=== PATIENT | male | born 1980 | race Two or more races ===

== ENCOUNTER 2021-03-30 09:04 | Emergency (ER) | payer OTHER, SELFPAY ==
[~2021-03-30] VITALS: Ht 177.8 cm; Wt 76.3 kg
[2021-03-30 09:12] VITALS: BP 121/75
--- NOTE | 2021-03-30 10:29 | NUR ---
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
--- NOTE | 2021-03-30 10:32 | NUR ---
[facility] #[id number] FOR CLINICAL SCREEN AND POC.
--- NOTE | 2021-03-30 11:18 | NUR ---
Patient/Caregiver given discharge instructions and they have confirmed that they understand the instructions. Patient ambulatory with steady gait. NAD, all questions answered appropriately, denies additional needs at this time. No personal belongings left in room after discharge.
== END 2021-03-30 11:19 | disposition home or self-care (01) ==
LOC: ED 11:17
DX: S20.212A Contusion of left front wall of thorax, initial encounter (principal); W07.XXXA Fall from chair, initial encounter; Y93.89 Activity, other specified; Y92.69 Other specified industrial and construction area as the place of occurrence of the external cause; Y99.8 Other external cause status
CPT/HCPCS: 99283